=== PATIENT | female | born 1995 | race Two or more races ===

== ENCOUNTER 2017-01-12 12:18 | Emergency (ER) | payer OTHER ==
[2017-01-12] MEDS ORDERED: Sodium Chloride 0.9% 1,000 ML IV ONE (12:39)
[2017-01-12] MEDS ORDERED: Ketorolac 30 MG/ML SDV IVPUSH ONE (12:39)
[2017-01-12] MEDS ORDERED: Ondansetron 4 MG/2 ML SDV IVPUSH ONE (12:39)
[2017-01-12] MEDS ORDERED: Sodium Chloride 0.9% 10 ML Syringe FLUSH PRN (12:39)
[2017-01-12] MEDS ORDERED: Sodium Chloride 0.9% 2.5 ML Syringe FLUSH PRN (12:39)
--- NOTE | 2017-01-12 12:43 | EDM.PDOC ---
ED HPI GENERAL MEDICAL PROBLEM - General Chief Complaint: Flank Pain Stated Complaint: SHARP PAIN ON RT SIDE Time Seen by Provider: 01/12/17 12:32 - History of Present Illness INITIAL COMMENTS - FREE TEXT/NARRATIVE: HISTORY AND PHYSICAL: History of present illness: The patient is a 21-year-old female was been seen at [facility] at the end of December for dysfunctional vaginal bleeding and was placed on control pills; she presents today with a three-day history of right- sided abdominal pain, right lower and right upper quadrants associated with some nausea and diarrhea. She's not had vomiting fevers or chills and no urinary complaints. She has no discrete flank pain or lower back pain. She describes the pain as a crampy pain and feels that it originated in the right lower quadrant and then spread to the right upper quadrant. She has no history of ovarian cysts and denies . She said that prior to this recent episodes of dysfunctional bleeding she had regular menses. Patient has been using Tylenol only for pain. Patient says that with the hormone therapy she is on her vaginal bleeding has improved and she is not concerned about that. Patient says she has no history of food intolerance and has had no surgeries on her abdomen. She has no history of bowel disturbances in the past. She has 3-4 bowel movements a day for the last 3 days and it is watery but it is not black or bloody. No recent travel per history Review of systems: As per history of present illness and below otherwise all systems reviewed and negative. Past medical history: As per history of present illness and as reviewed below otherwise noncontributory. Surgical history: As per history of present illness and as reviewed below otherwise noncontributory. Social history: No reported history of drug or alcohol abuse. Family history: As per history of present illness and as reviewed below otherwise noncontributory. Physical exam: Gen.: Older developed well-nourished obese female who is nontoxic and vital signs have been reviewed by me HEENT: Atraumatic, normocephalic, negative for conjunctival pallor or scleral icterus, mucous membranes moist, throat clear, neck supple, nontender, trachea midline. Lungs: Clear to auscultation, breath sounds equal bilaterally, chest nontender. Heart: S1S2, regular rate and rhythm no overt murmurs Abdomen: Soft, nondistended, bowel sounds are very hypoactive. Patient has discrete tenderness in the right lower and right upper quadrant with some voluntary guarding but no involuntary guarding or rebound. There is no tympany on percussion. Remainder of the abdominal exam is within normal limits and there is no left-sided tenderness. Negative for masses or hepatosplenomegaly. Negative for costovertebral tenderness. Pelvis: Stable nontender. Genitourinary: Deferred. Rectal: Deferred. Extremities: Atraumatic, negative for cords or calf pain. Neurovascular unremarkable. Neuro: Awake, alert, oriented. Cranial nerves II through XII unremarkable. Cerebellum unremarkable. Motor and sensory unremarkable throughout. Exam nonfocal. Diagnostics: CBC CMP amylase and lipase UA UCG CT scan of the abdomen and pelvis Therapeutics: IV IV fluids Toradol Zofran Patient is aware of all testing results including the blood work and the normal CAT scan. I told her to please follow-up in the clinic, [facility] as were her provider is, for further care and evaluation and advised hydration bland diet and I will give her some Bentyl for home. Impression: Abdominal pain stable etiology unclear Definitive disposition and diagnosis as appropriate pending reevaluation and review of above. Right Abdominal Pain Score (Numeric/FACES): 9 - Related Data Allergies Allergy/AdvReac Type Severity Reaction Status Date / Time No Known Allergies Allergy Verified 01/12/17 12:34 Home Meds: Home Meds Norethindrone Acetate 5 mg PO ASDIRECTED 01/12/17 [History] Past Medical History - Past Health History Medical/Surgical History: Denies Medical/Surgical History Social & Family History - Family History Family Medical History: Noncontributory - Tobacco Use Smoking Status *Q: Never Smoker - Recreational Drug Use Recreational Drug Use: No ED ROS GENERAL - Review of Systems Review Of Systems: ROS reveals no pertinent complaints other than HPI. ED EXAM, GENERAL - Physical Exam Exam: See Below (See dictation) Course - Vital Signs Last Recorded V/S: Last Vital Signs Temp 36.7 C 01/12/17 12:32 Pulse 81 01/12/17 12:32 Resp 18 01/12/17 12:32 BP 134/79 01/12/17 12:32 Pulse Ox 98 01/12/17 12:32 - Orders/Labs/Meds Orders: Active Orders 24 hr Category Date Time Status Communication Order [RC] STAT Care 01/12/17 12:39 Active Sodium Chloride 0.9% [Saline Flush] Med 01/12/17 12:39 Active 10 ml FLUSH ASDIRECTED PRN Sodium Chloride 0.9% [Saline Flush] Med 01/12/17 12:39 Active 2.5 ml FLUSH ASDIRECTED PRN Saline Lock Insert [OM.PC] Stat Oth 01/12/17 12:38 Ordered Medication Orders Sodium Chloride (Saline Flush) 10 ml FLUSH ASDIRECTED PRN PRN Reason: Keep Vein Open Last Admin: 01/12/17 13:01 Dose: 10 ml Sodium Chloride (Saline Flush) 2.5 ml FLUSH ASDIRECTED PRN PRN Reason: Keep Vein Open Last Admin: 01/12/17 13:02 Dose: 2.5 ml Labs: Laboratory Tests 01/12/17 01/12/17 01/12/17 Range/Units 12:59 12:59 12:59 WBC 6.23 (4.0-11.0) K/uL RBC 4.41 (4.30-5.90) M/uL Hgb 13.6 (12.0-16.0) g/dL Hct 39.9 (36.0-46.0) % MCV 90.5 (80.0-98.0) fL MCH 30.8 (27.0-32.0) pg MCHC 34.1 (31.0-37.0) g/dL RDW Std Deviation 44.0 (28.0-62.0) fl RDW Coeff of Jossie 13 (11.0-15.0) % Plt Count 251 (150-400) K/uL MPV 10.40 (7.40-12.00) fL Neut % (Auto) 60.7 (48.0-80.0) % Lymph % (Auto) 27.1 (16.0-40.0) % Beadle % (Auto) 10.3 (0.0-15.0) % Eos % (Auto) 1.9 (0.0-7.0) % Baso % (Auto) 0.0 (0.0-1.5) % Neut # (Auto) 3.8 (1.4-5.7) K/uL Lymph # (Auto) 1.7 (0.6-2.4) K/uL Beadle # (Auto) 0.6 (0.0-0.8) K/uL Eos # (Auto) 0.1 (0.0-0.7) K/uL Baso # (Auto) 0.0 (0.0-0.1) K/uL Nucleated RBC % 0.0 /100WBC Nucleated RBCs # 0 K/uL Sodium 139 (136-146) mmol/L Potassium 3.9 (3.5-5.1) mmol/L Chloride 111 H (98-110) mmol/L Carbon Dioxide 21 (21-31) mmol/L BUN 8 (6.0-23.0) mg/dL Creatinine 0.7 (0.6-1.5) mg/dL Est Cr Clr Drug Dosing 107.93 mL/min Estimated GFR (MDRD) > 60.0 ml/min Glucose 90 (60-110) mg/dL Calcium 9.1 (8.8-10.8) mg/dL Total Bilirubin 0.4 (0.1-1.5) mg/dL AST 21 (5-40) IU/L ALT 34 (8-54) IU/L Alkaline Phosphatase 74 (40-150) Total Protein 7.5 (6.0-8.0) g/dL Albumin 4.2 (3.5-5.0) g/dL Globulin 3.3 (2.0-3.5) g/dL Albumin/Globulin Ratio 1.3 (1.3-2.8) Amylase 48 (10-90) U/L Lipase 20 (7-80) U/L Urine Color Urine Appearance Urine pH (5.0-8.0) Ur Specific [place] (1.001-1.035) Urine Protein (NEGATIVE) mg/dL Urine Glucose (UA) (NEGATIVE) mg/dL Urine Ketones (NEGATIVE) mg/dL Urine Occult Blood (NEGATIVE) Urine Nitrite (NEGATIVE) Urine Bilirubin (NEGATIVE) Urine Urobilinogen (<2.0) EU/dL Ur Leukocyte Esterase (NEGATIVE) Urine RBC (0-2/HPF) Urine WBC (0-5/HPF) Ur Epithelial Cells (NONE-FEW) Urine Bacteria (NEGATIVE) Urine HCG, Qual NEGATIVE (NEGATIVE) 01/12/17 Range/Units 12:59 WBC (4.0-11.0) K/uL RBC (4.30-5.90) M/uL Hgb (12.0-16.0) g/dL Hct (36.0-46.0) % MCV (80.0-98.0) fL MCH (27.0-32.0) pg MCHC (31.0-37.0) g/dL RDW Std Deviation (28.0-62.0) fl RDW Coeff of Jossie (11.0-15.0) % Plt Count (150-400) K/uL MPV (7.40-12.00) fL Neut % (Auto) (48.0-80.0) % Lymph % (Auto) (16.0-40.0) % Beadle % (Auto) (0.0-15.0) % Eos % (Auto) (0.0-7.0) % Baso % (Auto) (0.0-1.5) % Neut # (Auto) (1.4-5.7) K/uL Lymph # (Auto) (0.6-2.4) K/uL Beadle # (Auto) (0.0-0.8) K/uL Eos # (Auto) (0.0-0.7) K/uL Baso # (Auto) (0.0-0.1) K/uL Nucleated RBC % /100WBC Nucleated RBCs # K/uL Sodium (136-146) mmol/L Potassium (3.5-5.1) mmol/L Chloride (98-110) mmol/L Carbon Dioxide (21-31) mmol/L BUN (6.0-23.0) mg/dL Creatinine (0.6-1.5) mg/dL Est Cr Clr Drug Dosing mL/min Estimated GFR (MDRD) ml/min Glucose (60-110) mg/dL Calcium (8.8-10.8) mg/dL Total Bilirubin (0.1-1.5) mg/dL AST (5-40) IU/L ALT (8-54) IU/L Alkaline Phosphatase (40-150) Total Protein (6.0-8.0) g/dL Albumin (3.5-5.0) g/dL Globulin (2.0-3.5) g/dL Albumin/Globulin Ratio (1.3-2.8) Amylase (10-90) U/L Lipase (7-80) U/L Urine Color YELLOW Urine Appearance CLEAR Urine pH 7.0 (5.0-8.0) Ur Specific [place] 1.015 (1.001-1.035) Urine Protein NEGATIVE (NEGATIVE) mg/dL Urine Glucose (UA) NEGATIVE (NEGATIVE) mg/dL Urine Ketones NEGATIVE (NEGATIVE) mg/dL Urine Occult Blood LARGE H (NEGATIVE) Urine Nitrite NEGATIVE (NEGATIVE) Urine Bilirubin NEGATIVE (NEGATIVE) Urine Urobilinogen 0.2 (<2.0) EU/dL Ur Leukocyte Esterase NEGATIVE (NEGATIVE) Urine RBC 0-1 (0-2/HPF) Urine WBC 0-1 (0-5/HPF) Ur Epithelial Cells RARE (NONE-FEW) Urine Bacteria RARE (NEGATIVE) Urine HCG, Qual (NEGATIVE) Meds: Medications Generic Name Dose Route Start Last Admin Trade Name Freq PRN Reason Stop Dose Admin Sodium Chloride 10 ml 01/12/17 12:39 01/12/17 13:01 Saline Flush FLUSH 10 ml ASDIRECTED PRN Administration Keep Vein Open Sodium Chloride 2.5 ml 01/12/17 12:39 01/12/17 13:02 Saline Flush FLUSH 2.5 ml ASDIRECTED PRN Administration Keep Vein Open Discontinued Medications Generic Name Dose Route Start Last Admin Trade Name Freq PRN Reason Stop Dose Admin Sodium Chloride 1,000 mls @ 999 mls/hr 01/12/17 12:39 01/12/17 13:02 Normal Saline IV 01/12/17 13:39 999 mls/hr STAT ONE Administration Iopamidol 100 ml 01/12/17 14:13 01/12/17 14:14 Isovue Multipack-370 (76%) IVPUSH 01/12/17 14:14 100 ml ONETIME STA Administration Ketorolac Tromethamine 30 mg 01/12/17 12:39 01/12/17 13:02 Toradol IVPUSH 01/12/17 12:40 30 mg ONETIME ONE Administration Ondansetron HCl 4 mg 01/12/17 12:39 01/12/17 13:02 Zofran IVPUSH 01/12/17 12:40 4 mg ONETIME ONE Administration Departure - Departure Time of Disposition: 14:24 Disposition: Home, Self-Care 01 Condition: Good Clinical Impression: Abdominal pain Qualifiers: Abdominal location: generalized Qualified Code(s): R10.84 - Generalized abdominal pain - Discharge Information Referrals: PCP,None [Primary Care Provider] - Forms: ED Department Discharge Additional Instructions: The following information is given to patients seen in the emergency department who are being discharged to home. This information is to outline your options for follow-up care. We provide all patients seen in our emergency department with a follow-up referral. The need for follow-up, as well as the timing and circumstances, are variable depending upon the specifics of your emergency department visit. If you don't have a primary care physician on staff, we will provide you with a referral. We always advise you to contact your personal physician following an emergency department visit to inform them of the circumstance of the visit and for follow-up with them and/or the need for any referrals to a consulting specialist. The emergency department will also refer you to a specialist when appropriate. This referral assures that you have the opportunity for followup care with a specialist. All of these measure are taken in an effort to provide you with optimal care, which includes your followup. Under all circumstances we always encourage you to contact your private physician who remains a resource for coordinating your care. When calling for followup care, please make the office aware that this follow-up is from your recent emergency room visit. If for any reason you are refused follow-up, please contact the [facility] emergency department at and ask to speak to the emergency department charge nurse. [facility] Primary care- Internal Medicine and Family [address] [address] [place] [phone] Please call and follow-up with your provider at [facility] or one of our physicians next week. Return to ER as needed and as discussed. Push hydration and eating a bland diet the next few days. Use [id number] Tylenol or ibuprofen for pain and also at the Bentyl as needed. - My Orders Last 24 Hours: My Active Orders 01/12/17 12:38 Saline Lock Insert [OM.PC] Stat 01/12/17 12:39 Communication Order [RC] STAT Sodium Chloride 0.9% [Saline Flush] 10 ml FLUSH ASDIRECTED PRN Sodium Chloride 0.9% [Saline Flush] 2.5 ml FLUSH ASDIRECTED PRN - Assessment/Plan Last 24 Hours: My Active Orders 01/12/17 12:38 Saline Lock Insert [OM.PC] Stat 01/12/17 12:39 Communication Order [RC] STAT Sodium Chloride 0.9% [Saline Flush] 10 ml FLUSH ASDIRECTED PRN Sodium Chloride 0.9% [Saline Flush] 2.5 ml FLUSH ASDIRECTED PRN
[2017-01-12 13:32] LABS: CHLORIDE,CL 111 mmol/L (98-110); SODIUM,NA 139 mmol/L (136-146)
[2017-01-12] MEDS ORDERED: Iopamidol 755 MG/ML 500 ML Multipack Bottle IVPUSH STA (14:13)
--- NOTE | 2017-01-12 14:18 | CT ---
CT of the abdomen and pelvis with contrast. HISTORY: Pain TECHNIQUE: Axial CT images were obtained of the abdomen and pelvis following administration of 100 mL of Isovue-370 in the left wrist without complication. Coronal and sagittal reconstructions obtained. FINDINGS: The lung bases are clear, no pleural effusion. The liver, spleen, adrenal glands, and pancreas appear normal. The gallbladder is normal. No bulky re troperitoneal lymphadenopathy or abdominal ascites. The kidneys enhance and function symmetrically without evidence of obstructive uropathy. The large and small bowel are normal in caliber without evidence of obstruction. No focal pericolonic inflammation or stranding. Appendix appears normal. Uterus and ovaries appear normal. No bulky pelvi c lymphadenopathy or free pelvic fluid. No suspicious osseous abnormalities identified. IMPRESSION: No acute findings demonstrated within the abdomen or pelvis.
== END 2017-01-12 14:48 | disposition home or self-care (01) ==
LOC: MW.ED 12:18
DX: R10.84 Generalized abdominal pain (principal)
CPT/HCPCS: 36415; 74177; 80053; 81001; 81025; 82150; 83690; 85025; 96361; 96374; 96375; 99284; J1885; J2405; J7040; Q9967; 99283

== ENCOUNTER 2017-01-29 07:45 | Day surgery (SDC) | payer OTHER ==
[~2017-01-29 07:45] MED LIST: Dexamethasone 4 MG/ML 5 ML MDV ONE; Lactated Ringers 1,000 ML IV SCH; Midazolam 1 MG/ML 2 ML SDV ONE; Ondansetron 4 MG/2 ML SDV ONE; Propofol 200 MG/20 ML SDV ONE; diphenhydrAMINE 50 MG/ML SDV ONE; fentaNYL 100 MCG/2 ML SDV ONE
[2017-01-29] MEDS ORDERED: Lactated Ringers 1,000 ML IV SCH (08:00)
--- NOTE | 2017-01-29 08:11 | PCM.PREANE ---
Preanesthetic Assessment - Anesthesia/Transfusion/Family Hx Anesthesia History: Prior Anesthesia Without Reaction Family History of Anesthesia Reaction: No Transfusion History: No Prior Transfusion(s) Intubation History: Unknown - Review of Systems General: No Symptoms Pulmonary: No Symptoms Cardiovascular: No Symptoms Gastrointestinal: No Symptoms Neurological: No Symptoms Other: Reports: None - Physical Assessment Height: 1.63 m Weight: 131.542 kg ASA Class: 2 Mental Status: Alert & Oriented x3 Airway Class: Mallampati = 2 Dentition: Reports: Normal Dentition (retainer at the bottom) Thyro-Mental Finger Breadths: 3 Mouth Opening Finger Breadths: 2 ROM/Head Extension: Full Lungs: Clear to Auscultation, Normal Respiratory Effort Cardiovascular: Regular Rate, Regular Rhythm - Allergies Allergies/Adverse Reactions: Allergies Allergy/AdvReac Type Severity Reaction Status Date / Time No Known Allergies Allergy Verified 01/12/17 12:34 - Blood Blood Available: No - Anesthesia Plan Pre-Op Medication Ordered: None - Acknowledgements Anesthesia Type Planned: General Anesthesia Pt an Appropriate Candidate for the Planned Anesthesia: Yes Alternatives and Risks of Anesthesia Discussed w Pt/Guardian: Yes Pt/Guardian Understands and Agrees with Anesthesia Plan: Yes PreAnesthesia Questionnaire - Past Health History Medical/Surgical History: Denies Medical/Surgical History Genitourinary History: Reports: None ELECTRICIAN RADIO History: Reports: Dysfunctional Uterine Bleeding Psychiatric History: Reports: Anxiety, Bipolar, Depression, Suicide Attempt Endocrine/Metabolic History: Reports: Obesity/BMI 30+ (BMI 49.8) - Past Surgical History Head Surgeries/Procedures: Reports: None HEENT Surgical History: Reports: Myringotomy w Tube(s), Tonsillectomy Female Surgical History: Reports: Cervical Cryotherapy - SUBSTANCE USE Smoking Status *Q: Current Some Day Smoker Tobacco Use Within Last Twelve Months: Cigarettes Recreational Drug Use History: No - HOME MEDS Home Medications: Home Meds Norethindrone Acetate 5 mg PO ASDIRECTED 01/12/17 [History] - CURRENT (IN HOUSE) MEDS Current Meds: Current Medications Lactated Ringer's (Ringers, Lactated) 1,000 mls @ 125 mls/hr IV ASDIRECTED TELMA Lactated Ringer's (Ringers, Lactated) 1,000 mls @ 125 mls/hr IV ASDIRECTED TELMA Discontinued Medications Dexamethasone (Dexamethasone) Confirm Administered Dose 20 mg .ROUTE .STK-MED ONE Stop: 01/29/17 07:27 Diphenhydramine HCl (Benadryl) Confirm Administered Dose 50 mg .ROUTE .STK-MED ONE Stop: 01/29/17 07:27 Fentanyl (Sublimaze) Confirm Administered Dose 100 mcg .ROUTE .STK-MED ONE Stop: 01/29/17 07:27 Midazolam HCl (Versed 1 Mg/Ml) Confirm Administered Dose 2 mg .ROUTE .STK-MED ONE Stop: 01/29/17 07:27 Ondansetron HCl (Zofran) Confirm Administered Dose 4 mg .ROUTE .STK-MED ONE Stop: 01/29/17 07:27 Propofol (Diprivan 20 Ml) Confirm Administered Dose 200 mg .ROUTE .STK-MED ONE Stop: 01/29/17 07:27
[2017-01-29] MEDS ORDERED: Lidocaine 2% 100 MG/5 ML Syringe ONE (10:43)
[2017-01-29] MEDS ORDERED: HYDROmorphone 2 MG/ML Syringe ONE (10:48)
[2017-01-29] MEDS ORDERED: ePHEDrine 50 MG/ML SDV ONE (10:54)
--- NOTE | 2017-01-29 11:28 | PCM.OPNOTE ---
- General Post-Op/Procedure Note Date of Surgery/Procedure: 01/29/17 Operative Procedure(s): Dilatation and Currettage and Hysteroscopy Findings: EUA showed 8 week sized anterverted Uterus . Hysteroscopy showed proliferative, fluffy endometrium , no lesions noted, Uterus sounded to 8cm Pre Op Diagnosis: Abnormal uterine bleeding Post-Op Diagnosis: Abnormal uterine bleeding Anesthesia Technique: General Mask Primary Surgeon: Daja Amos Anesthesia Provider: Isaac Schulz Pathology: Endometrial curretings and Endocervical curretings Fluid Replacement, Intraop: 1,300 Output, Urine Amount: 10 EBL in mLs: 5 Complications: None Condition: Good
[2017-01-29] MEDS ORDERED: Ketorolac 15 MG/ML SDV IVPUSH ONE (11:31)
[2017-01-29] MEDS ORDERED: Acetaminophen/HYDROcodone 325-5 MG Tab PO PRN (11:31)
--- NOTE | 2017-01-29 11:49 | PCM.POSTAN ---
POST ANESTHESIA ASSESSMENT - MENTAL STATUS Mental Status: Alert, Oriented - RESPIRATORY Respiratory Status: Respiratory Rate WNL, Airway Patent, O2 Saturation Stable - CARDIOVASCULAR CV Status: Pulse Rate WNL, Blood Pressure Stable - GASTROINTESTINAL GI Status: No Symptoms - PAIN Pain Score: 6 - POST OP HYDRATION Hydration Status: Adequate & Stable - OBSERVATIONS Free Text/Narrative:: no anesthesia problems
--- NOTE | 2017-01-29 18:16 | OR ---
SURGEON: MARGAUX GARCIA DATE OF PROCEDURE: 01/29/2017 PREOPERATIVE DIAGNOSES: Abnormal uterine bleeding. POSTOPERATIVE DIAGNOSIS: Abnormal uterine bleeding. ESTIMATED BLOOD LOSS: 5 mL. FLUIDS: IV fluid 1300. Fluid deficit was 55 of normal saline. FINDING: Examination under anesthesia showed 8-week sized anteverted uterus with a small cervix. Hysteroscopy showed mainly normal fluffy endometrium. Bilateral ostia visualized. No lesions noted in the endometrial cavity. BRIEF HISTORY: She is a 21-year-old para 0 was being followed up for abnormal uterine bleeding, Hx of PCOS . The patient has a history of abnormal uterine bleeding for several years. She had been placed on OCP in the past and had an EMB done previously which was benign. The patient said she had been having vaginal bleeding on and off since November The patient was initially managed by placed on norethindrone, she said the bleeding was reduced, but did not stop.again she was placed on the Lysteda which did not help the bleeding, then placed back on norethindrone., which on the day of the surgery has had helped the bleeding. The patient initially also had a TSH done which was high. She was referred to the PCP who repeated the TSH , which resulted normal. She had an ultrasound done that showed normal-sized uterus with a thickened endometrium of 25 mm. As a result, the patient was counselled for D and C hysteroscopy. The patient understands the nature of procedure and signed the consent. PROCEDURE IN DETAIL: The patient was taken to the operating room where general anesthesia was performed without difficulty. She was placed in the dorsal lithotomy position with an amber stirrup. The cervix was then exposed with a bivalve speculum. The anterior lip of the cervix was grasped with an Allis clamp. The cervix was sequentially dilated to accommodate a 10-mm 0-degree hysteroscope. The hysteroscope was advanced into the uterus and the above-noted finding was noted. Then, the hysteroscope was removed and gentle dilatation and curettage was done. ECC was initially done with curette followed by endometrial curetting. The hysteroscope was then again advanced and to the endometrial cavity which appeared normal. The endoscope was withdrawn and the Allis was removed. All instrument and pad counts were correct x2. The patient tolerated the procedure well. SILVER / ADELAIDE /[id number] MTDD
== END 2017-01-29 12:50 | disposition home or self-care (01) ==
LOC: MW.SDS 07:45
PROVIDERS: ATTEND Obstetrics & Gynecology
DX: N93.9 Abnormal uterine and vaginal bleeding, unspecified (principal); F41.9 Anxiety disorder, unspecified; F31.9 Bipolar disorder, unspecified; F17.210 Nicotine dependence, cigarettes, uncomplicated; E66.9 Obesity, unspecified; Z68.42 Body mass index [BMI] 45.0-49.9, adult; Z91.5 Personal history of self-harm; Z83.3 Family history of diabetes mellitus; Z82.49 Family history of ischemic heart disease and other diseases of the circulatory system; Z96.22 Myringotomy tube(s) status
CPT/HCPCS: 36415; 58558; 84703; 85025; A9270; J1100; J1170; J1200; J2250; J2405; J3010; J7120; 00952; 88305; J2704